=== PATIENT | male | born 1955 | race Caucasian/White ===

== ENCOUNTER 2021-09-22 08:51 | Emergency (ER) | payer MEDICARE ==
[~2021-09-22] VITALS: Ht 182.9 cm; Wt 104.3 kg
--- NOTE | ~2021-09-22 | EKG ---
[facility] [address] [place], [place] [address] Draft EK completed, results pending confirmation PATIENT NAME: EVLIRA BAINS Electrocardiogram DATE OF : 57 PHYSICIAN: PRELIMINARY REPORT #: [id number] REPORT IS CONFIDENTIAL AND NOT TO BE RELEASED WITHOUT AUTHORIZATION
[2021-09-22] MEDS ORDERED: ATENOLOL50 MG PO (09:15)
[2021-09-22] MEDS ORDERED: ASPIRIN81 MG PO (09:16)
[2021-09-22] MEDS ORDERED: HYDROCODON-ACE1 EA10 PO ×2 (09:16→09:57)
[2021-09-22] MEDS ORDERED: METHOCARBAMOL750 MG PO (09:17)
[2021-09-22] MEDS ORDERED: FENOFIBRATE160 MG PO (09:17)
[2021-09-22] MEDS ORDERED: PSEUDOEPHEDRIN120 MG PO (09:18)
[2021-09-22] MEDS ORDERED: IBU600 MG PO (09:18)
[2021-09-22] MEDS ORDERED: MELOXICAM15 MG PO (09:20)
[2021-09-22] MEDS ORDERED: NORVASC10 MG PO (09:21)
[2021-09-22] MEDS ORDERED: COZAAR100 MG PO (09:21)
[2021-09-22] MEDS ORDERED: PRAMIPEXOLE0.125 MG PO (09:57)
--- OUTSIDE RECORDS SUMMARY | 2021-09-22 10:52 | XMS ---
PreManage Notification: ELVIRA BAINS Security Dental Billing Specialist Events No recent Security Events currently on file CRITERIA MET - [facility] - 2 Visits in 30 Days CARE PROVIDERS There are no care providers on record at this time. Deb has no Care Guidelines for this patient. Cecile VISIT COUNT (12 MO.) 1 [facility]. [facility] TOTAL 2 NOTE: Visits indicate total known visits. ED/C VISIT TRACKING (12 MO.) 09/22/2021 08[facility] COMPLAINT: - DIFFICULTY BREATHING 09/20/2021 13:40 [facility] TYPE: Emergency COMPLAINT: - Sore Ribs DIAGNOSES: - Fracture of one rib, right side, initial encounter for closed fracture - Sore Ribs - Rib Injury INPATIENT VISIT TRACKING (12 MO.) No inpatient visits to display in this time frame [id number]
== END 2021-09-22 10:20 | disposition home or self-care (01) ==
LOC: ED 08:51
DX: R06.02 Shortness of breath (principal); S22.41XA Multiple fractures of ribs, right side, initial encounter for closed fracture; X58.XXXA Exposure to other specified factors, initial encounter; Z79.899 Other long term (current) drug therapy; Z79.82 Long term (current) use of aspirin
CPT/HCPCS: 36415; 71045; 80053; 83880; 85025; 85379; 93005; 93010; 99285-25